=== PATIENT | female | born 1975 | race Caucasian/White ===

== ENCOUNTER → 2018-06-24 09:00 | Outpatient (POV) | payer OTHER, SELFPAY | PROVIDERS: PCP Family Medicine; Visit Provider Dermatology | DX: Z00.00 Encounter for general adult medical examination without abnormal findings (principal) ==

== ENCOUNTER → 2019-03-31 15:12 | Outpatient (POV) | payer OTHER, SELFPAY | PROVIDERS: Visit Provider Dermatology | DX: Z00.00 Encounter for general adult medical examination without abnormal findings (principal) ==

== ENCOUNTER → 2020-05-26 15:14 | Outpatient (CLI) | payer OTHER, SELFPAY ==
--- NOTE | 2020-05-26 15:17 | MM_ITS ---
PROCEDURE: MM DIG SCREENING MAMM BI W/CAD Digital Breast Tomosynthesis Included CLINICAL INDICATION: SCREENING There is no personal or family history of breast cancer. The patient complains of some tenderness in the right axillary region. COMPARISON: This is a baseline exam. TECHNIQUE: Standard CC and MLO images and 3D Tomosynthesis was obtained. R2 CAD reviewed. FINDINGS: Mild to moderate fibroglandular densities are seen in the central portions of both breasts and the findings are bilateral and symmetrical. There is no suspicious lesion in either breast and no suspicious microcalcifications. The axilla are unremarkable bilaterally. IMPRESSION: Fibrofatty parenchyma with no suspicious lesions seen BI-RAD Category: 1 Negative FOLLOW-UP: 1YR 1 Year Follow-up (A letter has been sent to the patient regarding results of the study.) Dictated by: Dr. Alexsander Sanz MD 05/31/2020 13:00 Dr. Alexsander Sanz MD in [place] 05/31/2020 13:00
== END ==
PROVIDERS: PCP Family Medicine; Visit Provider Family Medicine
DX: Z12.31 Encounter for screening mammogram for malignant neoplasm of breast (principal)
CPT/HCPCS: 77063; 77067

== ENCOUNTER 2021-03-07 08:00 | Outpatient (RCR) | payer OTHER, SELFPAY ==
--- NOTE | 2021-01-25 11:47 | HMH.OTOPEV ---
OT Inpatient Evaluation Rehab OT Outpatient Eval Start: 01/25/21 11:35 Freq: Status: Active Protocol: Document 01/25/21 11:36 RMARSHALL (Rec: 01/25/21 11:47 RMARSHALL [id number]) Electronically Signed By Viridiana Anthony OT 01/25/21 11:36 Outpatient Therapy Subjective History Subjective History Pt is a 45 year old female who reports to therapy with R wrist pain. Pt explains she has had pain in her wrist on and off for 10+ years. Pt has had physical therapy ~10 years ago due to wrist pain. Pt does not recall a specific injury causing her pain to begin. Pt says her pain has increased within the past month. Pt is very active and does exercise often. However, she has been unable to do so due to pain. Pt is right hand dominant. At this time pt has not had x-ray or MRI. Pt does demonstrate with a a slight decline in motion and strength. Pt will continue to be seen in order to address deficits. Chief Complaint Pain,Stiff,Weakness Symptom Type Ache,Throb,Sharp,Dull Symptoms Relieved By Rest/Positioning Symptoms Aggravated By Physical Activity,Lifting Prior Functional Limitations None Current Functional Limitations Lifting,Housework,Sleeping, Recreation Activity Symptom Description Intermittent,Activity Dependent Level of pain today (0-10) 2 Pain scale - at its best (0-10) 1 Pain scale - at its worst (0-10) 6 Wrist/Hand Eval Wrist Range of Motion Right Wrist Extension Active Range of Motion ( 45 degrees degrees) Wrist Flexion Active Range of Motion ( 50 degrees degrees) Wrist Radial Deviation Active Range of 18 degrees Motion (degrees) Wrist Ulnar Deviation Active Range of 25 degrees Motion (degrees) Wrist Manual Muscle Testing Right Wrist Extension Strength Grade 3 Fair Wrist Flexion Strength Grade 3+ Fair+ Wrist Radial Deviation Strength Grade 3+ Fair+ Wrist Ulnar Deviation Strength Grade 3+ Fair+ Social Science Analyst/Pinch Strength Left Social Science Analyst Strength Measurement (lbs) 65 Right Social Science Analyst Strength Measurement (lbs) 45 OT Outpatient Assessment Impairments Problems/Impairmen
--- NOTE | 2021-02-21 09:17 | HMH.RHREAS ---
Rehab Reassessment Rehab OP Re-assessment Start: 02/21/21 09:09 Freq: Status: Active Protocol: Document 02/21/21 09:09 RMHÉCTORHALL (Rec: 02/21/21 09:17 RMARSHALL [id number]) Electronically Signed By Viridiana Anthony OT 02/21/21 09:09 Rehab Re-assessment Subjective Subjective I do feel it is doing much better. Objective Objective Notes Pt continues to be seen twice a week in order to address right wrist deficits. Each session, pt is passively ranged at right wrist in flexion, extension, rd, ud, supination, and pronation. Pt also engages in right wrist/ data report analyst strengthening exercises. Modalities are provided in order to decrease pain/ inflammation. Assessment Progress Assessment Progressing as Expected Assessment Notes Pt demonstrates great improvement at right wrist. Pt's AROM has improved since starting therapy and is now WFL. 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 Pt reports minimal pain at the right wrist. She still has pain/difficutly when she has to put body weight through the right wrist. Strength has improved, but still limited. Pt is going to continue to be seen once a week in order to continue with therapy exercises/treatments. Current AROM and Strength R wrist Flex: 65 degrees; 4- Ext: 70 degrees; 4- RD: 28 degrees; 4- UD: 30 degrees; 4- Installer Molding And Trim strengthe: 55 lbs Patient goals met ST-5 LT & 4 Goals Not Met See below Revised Goals LT, 2, & 5 Plan Plan Continue with OT plan of care at this time Frequency of Therapy 1x a week Duration of therapy 4 more weeks Time and Billing Re-Eval Time 10 Re-Eval Billing Units
== END 2021-03-07 08:05 | disposition home or self-care (01) ==
LOC: OT 08:00
PROVIDERS: PCP Family Medicine; Visit Provider Family Medicine
DX: M25.531 Pain in right wrist (principal)
CPT/HCPCS: 97014; 97035; 97110; 97140; 97164; 97166; 97763; G0283

== ENCOUNTER → 2021-05-29 07:58 | Outpatient (CLI) | payer OTHER, SELFPAY ==
--- NOTE | 2021-05-29 08:00 | MM_ITS ---
PROCEDURE INFORMATION: Exam: MG Bilateral Screening 3D Mammography Exam date and time: 05/29/2021 8:00 AM Age: 45 years old Clinical indication: Encounter for screening mammogram for malignant neoplasm of breast TECHNIQUE: Imaging protocol: Bilateral screening tomosynthesis and 2D mammography including computer-aided detection (CAD) when performed. COMPARISON: 05/26/2020 FINDINGS: MAMMOGRAPHY: Breast composition: The breasts are heterogeneously dense, which may obscure small masses. Mass: No suspicious masses. Architectural distortion: No suspicious distortion. Calcifications: No suspicious calcifications. Asymmetric density: None. Skin thickening: None. Axillary adenopathy: None. IMPRESSION: No mammographic evidence of malignancy. Annual screening is recommended unless otherwise clinically indicated. ASSESSMENT: BI-RADS Category 1: Negative
== END ==
PROVIDERS: PCP Family Medicine; Visit Provider Family Medicine
DX: Z12.31 Encounter for screening mammogram for malignant neoplasm of breast (principal)
CPT/HCPCS: 77063; 77067

== ENCOUNTER → 2021-08-28 13:50 | Outpatient (CLI) | payer OTHER, SELFPAY ==
--- NOTE | 2021-08-28 13:50 | US_ITS ---
FINAL REPORT CLINICAL HISTORY: Abnormal Bleeding-- post menop -- started hrt with cycles COMPARISON: 11/02/2016 FINDINGS: Transvaginal sonographic images of the pelvis were obtained. The uterus measures 8.2 x 4.0 x 4.0. The endometrium measures 0.35 cm, which is within normal limits. There is a 1.8 cm uterine mass consistent with fibroid. The right ovary measures 2.8 cm in length and left ovary measures 2.4 cm in length. Normal blood flow seen to the ovaries. There is a 1.5 cm probable right ovarian cyst. There is no evidence of free fluid. IMPRESSION: 1.5 cm probable right ovarian cyst. 1.8 cm uterine mass consistent with fibroid. Reviewed, Interpreted and Dictated by Anders Calderon III, MD Transcribed by Rachel Agudelo Authenticated by Anders Calderon III, MD on 08/28/2021 04:18:[address] [facility]
== END ==
PROVIDERS: PCP Family Medicine; Visit Provider Obstetrics & Gynecology
DX: N91.2 Amenorrhea, unspecified (principal)
CPT/HCPCS: 76830

== ENCOUNTER → 2022-06-05 08:31 | Outpatient (CLI) | payer BC, SELFPAY ==
--- NOTE | 2022-06-05 08:33 | MM_ITS ---
PROCEDURE INFORMATION: Exam: MG Bilateral Screening 3D Mammography Exam date and time: 06/05/2022 8:53 AM Age: 46 years old Clinical indication: Screening examination. No family history of breast cancer. TECHNIQUE: Imaging protocol: Bilateral Screening tomosynthesis and 2D mammography including computer-aided detection (CAD) when performed. COMPARISON: 1. MG MM DIG SCREENING MAMM BI W/CAD 05/29/2021 8:05 AM 2. MG MM DIG SCREENING MAMM BI W/CAD 05/26/2020 3:23 PM FINDINGS: MAMMOGRAPHY: Breast composition: The breasts are heterogeneously dense, which may obscure small masses. Mass: None. Architectural distortion: None. Calcifications: No suspicious calcifications. Asymmetric density: None. Skin thickening: None. Axillary adenopathy: None. IMPRESSION: No mammographic evidence of malignancy. Annual screening is recommended unless otherwise clinically indicated. ASSESSMENT: BI-RADS Category 1: Negative
== END ==
PROVIDERS: PCP Nurse Practitioner Family; Visit Provider Nurse Practitioner Family
DX: Z12.31 Encounter for screening mammogram for malignant neoplasm of breast (principal)
CPT/HCPCS: 77063; 77067

== ENCOUNTER → 2023-06-06 07:56 | Outpatient (CLI) | payer BC, SELFPAY ==
--- NOTE | 2023-06-06 08:01 | MM_ITS ---
PROCEDURE INFORMATION: Exam: MG Bilateral Screening 3D Mammography Exam date and time: 06/06/2023 7:54 AM Age: 47 years old Clinical indication: Screening. No family history of breast cancer. TECHNIQUE: Imaging protocol: Bilateral Screening tomosynthesis and 2D mammography including computer-aided detection (CAD) when performed. COMPARISON: 1. MG MM DIG SCREENING MAMM BI W/CAD 06/05/2022 8:53 AM 2. MG MM DIG SCREENING MAMM BI W/CAD 05/29/2021 8:05 AM 3. MG MM DIG SCREENING MAMM BI W/CAD 05/26/2020 3:23 PM FINDINGS: MAMMOGRAPHY: Breast composition: The breasts are heterogeneously dense, which may obscure small masses. Mass: None. Architectural distortion: None. Calcifications: No suspicious calcifications. Asymmetric density: None. Skin thickening: None. Axillary adenopathy: None. IMPRESSION: No mammographic evidence of malignancy. Annual screening is recommended unless otherwise clinically indicated. ASSESSMENT: BI-RADS Category 1: Negative
== END ==
PROVIDERS: PCP Nurse Practitioner Family; Visit Provider Nurse Practitioner Family
DX: Z12.31 Encounter for screening mammogram for malignant neoplasm of breast (principal)
CPT/HCPCS: 77063; 77067

== ENCOUNTER 2024-06-16 15:05 | Outpatient (CLI) | payer BC, SELFPAY ==
--- NOTE | 2024-06-16 15:09 | MM_ITS ---
PROCEDURE INFORMATION: Exam: MG Bilateral Screening 3D Mammography Exam date and time: 06/16/2024 2:55 PM Age: 48 years old Clinical indication: Screening. No family history of breast cancer. TECHNIQUE: Imaging protocol: Bilateral Screening tomosynthesis and 2D mammography including computer-aided detection (CAD) when performed. COMPARISON: 1. MG MM DIG SCREENING MAMM BI W/CAD 06/06/2023 7:54 AM 2. MG MM DIG SCREENING MAMM BI W/CAD 06/05/2022 8:53 AM 3. MG MM DIG SCREENING MAMM BI W/CAD 05/29/2021 8:05 AM 4. MG MM DIG SCREENING MAMM BI W/CAD 05/26/2020 3:23 PM FINDINGS: MAMMOGRAPHY: Breast composition: The breasts are heterogeneously dense, which may obscure small masses. Mass: None. Architectural distortion: None. Calcifications: No suspicious calcifications. Asymmetric density: None. Skin thickening: None. Axillary adenopathy: None. IMPRESSION: No mammographic evidence of malignancy. Annual screening is recommended unless otherwise clinically indicated. ASSESSMENT: BI-RADS Category 1: Negative.
== END 2024-06-16 23:59 | disposition home or self-care (01) ==
LOC: RAD 15:06
PROVIDERS: PCP Nurse Practitioner Family; Visit Provider Nurse Practitioner Family
DX: Z12.31 Encounter for screening mammogram for malignant neoplasm of breast (principal)
CPT/HCPCS: 77063; 77067

== ENCOUNTER 2025-06-17 12:47 | Outpatient (CLI) | payer BC, SELFPAY ==
--- NOTE | 2025-06-17 12:49 | MM_ITS ---
PROCEDURE INFORMATION: Exam: MG Bilateral Screening 3D Mammography Exam date and time: 06/17/2025 1:01 PM Age: 49 years old Clinical indication: Screening examination TECHNIQUE: Imaging protocol: Bilateral Screening tomosynthesis and 2D mammography including computer-aided detection (CAD) when performed. COMPARISON: 1. MG MM DIG SCREENING MAMM BI W/CAD 06/16/2024 2:55 PM 2. MG MM DIG SCREENING MAMM BI W/CAD 06/06/2023 7:54 AM FINDINGS: MAMMOGRAPHY: Breast composition: The breasts are heterogeneously dense, which may obscure small masses. Mass: None. Architectural distortion: None. Calcifications: No suspicious calcifications. Asymmetric density: None. Skin thickening: None. Axillary adenopathy: None. IMPRESSION: No mammographic evidence of malignancy. Annual screening is recommended unless otherwise clinically indicated. ASSESSMENT: BI-RADS Category 1: Negative.
--- OUTSIDE RECORDS SUMMARY | 2025-06-17 12:53 | XMS_ITS | Clinical Summary ---
Author Organization [facility] Address [address] [place] [address] Care Team Providers Care Group Exercise Class Instructor Name Role Phone Beatrice Valentin APRN Primary Care Provid er Allergies No known active allergies Medications pantoprazole (PROTONIX) 40 MG EC tablet TAKE ONE TABLET BY MOUTH EVERY DAY 30 tablet 1 2 Active Rimegepant Sulfate (NURTEC) 75 MG tablet dispersible tablet Take 1 tablet by mouth Daily as needed for migraine 8 tablet 5 2 Active pantoprazole (PROTONIX) 40 MG EC tablet Take 1 tablet by mouth Daily. 30 tablet 5 2 Active clonazePAM (KlonoPIN) 0.5 MG tablet Take 1 tablet by mouth once Daily As Needed for Anxiety. 30 tablet 07/23/2023 8:57 AM EST 3 Active traMADol (ULTRAM) 50 MG tablet Take 1-2 tablet(s) by mouth once Daily As Needed for Migraine. 60 tablet 07/23/2023 8:57 AM EST 3 Active fluconazole (DIFLUCAN) 150 MG tablet 4 Active pantoprazole (PROTONIX) 40 MG EC tablet Take 1 tablet by mouth Daily. 90 tablet 1 02/03/2025 10:36 AM EDT 5 Active estrogen, conjugated,-medrox yprogesterone (Prempro) 0.45-1.5 MG per tablet Take 1 tablet by mouth Daily. 84 tablet 3 04/29/2025 11:11 AM EDT 5 Active rimegepant sulfate ODT (Nurtec) 75 MG disintegrating tablet Take 1 tablet by mouth Every Other Day. 45 tablet 3 05/24/2025 10:21 AM EDT Active rimegepant sulfate ODT (Nurtec) 75 MG disintegrating tablet Take 1 tablet by mouth Every Other Day. 45 tablet 3 04/27/2025 9:03 AM EDT 4 025 Discontin ued(Reord er) Active Problems Problem Noted Date Diagnosed Date Chronic migraine without aur a, intractable, without status migrainosus 07/22/2023 Family History Medical History Relation Name Comments Osteoporosis Mother Martha Jones Relation Name Status Comments Mother Martha Jones Social History Tobacco Use Types Packs/Day Years Used Date Smoking Tobacco: Never Smokeless Tobacco: Never Tobacco Cessation:Counseling Given: Not Answered Alcohol Use Standard Drinks/Week Comments Yes 1 (1 standard drink = 0.6 oz pur e alcohol) Comments Unknown Sex and Gender Information Value Date Recorded Sex Assigned at Not on file Legal Sex Female 12:23 PM EDT Gender Identity Female 09/10/2023 7:49 PM EST Sexual Orientation Not on file Last Filed Vital Signs Vital Sign Reading Time Taken Comments Blood Pressure 120/78 10/24/2023 9:07 AM EST Pulse - - Temperature - - Respiratory Rate - - Oxygen Saturation - - Inhaled Oxygen Concentration - - Weight 61.7 kg (136 lb) 10/24/2023 9:07 AM EST Height 169 cm (5' 6.54 ) 10/24/2023 9:07 AM EST Body Mass Index 21.6 10/24/2023 9:07 AM EST Plan of Treatment Health Maintenance Due Date Last Done Comments Annual Gynecologic Pelvic an d Breast Exam 1976 TDAP/TD VACCINES (1 - Tdap) 1995 PAP SMEAR 1997 MAMMOGRAM 2016 COLOGUARD 2021 COLON CANCER SCREENING 5 YEA R SIGMOID[address]COPY [address] COLONOGRAPHY 2021 FECAL OCCULT BLOOD TEST 2021 FIT Testing (1 year) 2021 ANNUAL PHYSICAL 01/02/2022 HEPATITIS C SCREENING 01/02/2022 INFLUENZA VACCINE 03/19/2025 06/17/2023, 05/03/2022, 05/04/2016 COLONOSCOPY 01/31/2032 01/30/2022 COLORECTAL CANCER SCREENING 01/31/2032 Pneumococcal Vaccine 0-49 Aged Out No longer eligible based on patient's age to complete this topic Goals Goal Patient Goal Type Associated Problems Recent Progress Patient-Stated? Author Specialty Pharmacy General Goal General On track(04/01/20 25 9:51 AM EDT) No Lowell Lauren [facility] Note: Reduce the number of migraine days per month by 50% Procedures Procedure Name Priority Date/Time Associated Diagnosis Comments SCANNED - COLONOSCOPY 01/30/2022 from Last 3 Months or Most Recently Relevant to Health Maintenance Results * SCANNED - COLONOSCOPY (01/30/2022) Ebenezer Turner MD CHART REVIEW TABS Final Res ult from Last 3 Months or Most Recently Relevant to Health Maintenance Insurance [employer] Care Teams Group Exercise Class Instructor Relationship Specialty Start Date End Date Beatrice Valentin APRN [address] [place] [address] [place] [id number] PCP - General Family Medicine 01/23/22
--- OUTSIDE RECORDS SUMMARY | 2025-06-17 12:53 | XMS_ITS ---
Author Organization [facility] Address [address] [place] [address] Care Team Providers Care Plaster Whittler Name Role Phone Beatrice Valentin APRN Primary Care Provid er Chronic Migraine Status:Enrolled (Active) Start date:07/22/2023 Enrollment date:07/22/2023 Enrollment reason:Already filling at Current support & services provided:Clinical Assessment, Refill Coordination , Benefits Investigation, Copay Assistance, [facility] Dispensing Linked medications:Rimegepant Sulfate (Active) Linked problems:Chronic migraine without aura, intractable, without status migrainosus (Active) Case Team Name Relationship Phone Lowell Lauren [facility] Pharmacist Carol Orellana Database Analyst Reyna leigh Continued Care and Services Coordination
== END 2025-06-17 23:59 | disposition home or self-care (01) ==
LOC: RAD 12:48
PROVIDERS: PCP Nurse Practitioner Family; Visit Provider Nurse Practitioner Family
DX: Z12.31 Encounter for screening mammogram for malignant neoplasm of breast (principal); R92.333 Mammographic heterogeneous density, bilateral breasts
CPT/HCPCS: 77063; 77067